=== PATIENT | female | born 1990 | race Caucasian/White ===

== ENCOUNTER 2017-03-25 14:11 | Inpatient (IN) | payer BC ==
[~2017-03-25 14:11] MED LIST: FENTANYL PF 100 MCG/2ML ONE; LIDOCAINE 1%, 20ML ONE; MISOPROSTOL 200 MCG TABLET ONE; NEWBORN KIT ONE; OXYTOCIN 30U/ 0.9% NaCL 500ML 500 ML ONE
[2017-03-25] MEDS: IBUPROFEN 800 MG TABLET PO PRN (14:12)
[2017-03-25] MEDS ORDERED: IBUPROFEN 600 MG TABLET ONE ×2 (14:30→21:40)
[2017-03-25] MEDS ORDERED: OXYTOCIN 30U/ 0.9% NaCL 500ML 500 ML ONE (15:59)
[2017-03-26] MEDS ORDERED: IBUPROFEN 600 MG TABLET ONE ×2 (05:45→10:57)
[2017-03-26] MEDS ORDERED: DOCUSATE 100 MG CAPSULE ONE (07:55)
[2017-03-26] MEDS ORDERED: PRENATAL VIT/IRON/FA 1 EACH TABLET ONE (07:55)
[2017-03-26] MEDS: IBUPROFEN 800 MG TABLET PO PRN (11:00)
[2017-03-26] MEDS ORDERED: OXYTOCIN 30U/ 0.9% NaCL 500ML 500 ML IV SCH (17:29)
[2017-03-26] MEDS ORDERED: IBUPROFEN 600 MG TABLET PO PRN (17:30)
[2017-03-26] MEDS ORDERED: HYDROcodone/APAP 5/325 TABLET PO PRN ×2 (17:30)
[2017-03-26] MEDS ORDERED: ACETAMINOPHEN 325 MG TABLET PO PRN (17:30)
[2017-03-26] MEDS ORDERED: LACTATED RINGERS 1,000 ML IV SCH (18:00)
[2017-03-27] MEDS ORDERED: PRENATAL VIT/IRON/FA 1 EACH TABLET PO SCH (09:00)
== END 2017-03-26 15:17 | disposition home or self-care (01) | DRG 775 ==
LOC: 2NW 14:11
PROVIDERS: ADMIT Specialist; ATTEND Specialist
PROC: 10E0XZZ Delivery of Products of Conception, External Approach (ICD-10-PCS; principal; 2017-03-25)
PROC: 10907ZC Drainage of Amniotic Fluid, Therapeutic from Products of Conception, Via Natural or Artificial Opening (ICD-10-PCS; 2017-03-25)
PROC: 3E033VJ Introduction of Other Hormone into Peripheral Vein, Percutaneous Approach (ICD-10-PCS; 2017-03-25)
DX: O77.0 Labor and delivery complicated by meconium in amniotic fluid (principal); Z37.0 Single live birth; Z3A.40 40 weeks gestation of pregnancy; Z23 Encounter for immunization
CPT/HCPCS: 36415; 82962; 86850; 86900; J2590